=== PATIENT | male | born 1955 | race Caucasian/White ===

== ENCOUNTER 2017-11-20 08:15 | Inpatient (IN) | payer OTHER ==
[2017-11-20] VITALS (7 sets, daily range): BP systolic 114–129; BP diastolic 70–77; PULSE 93–102; TEMP 37–37.7; O2SAT 99–100; Ht 180.3 cm; Wt 113.4 kg
[~2017-11-20] VITALS: Ht 180.3 cm; Wt 113.4 kg
[2017-11-20] MEDS ORDERED: SODIUM CHLORIDE 0.9% 1000ML 1,000 ML IV STA (08:23)
[2017-11-20 08:47] LABS: HEMATOCRIT 48.7 % (42-52); HEMOGLOBIN 17.2 g/dL (14.0-18.0); MEAN CELL VOLUME 93.1 fL (80-100); MEAN CORPUSCULAR HEMOGLOBIN 32.9 pg (25-34); MEAN CORPUSCULAR HGB CONC 35.3 g/dl (32-36); MEAN PLATELET VOLUME 9.1 fL (7.4-10.4); NUCLEATED RED BLOOD CELL ABS 0.06 K/uL (0-0); PLATELET COUNT 160 K/uL (130-400); RED CELL DISTRIBUTION WIDTH CV 13.1 % (11.5-14.5); RED CELL DISTRIBUTION WIDTH SD 44.6 fL (36.4-46.3); WHITE BLOOD COUNT 28.29 K/uL (4.8-10.8)
[2017-11-20 08:57] LABS: INR 1.5 (0.9-1.1); PTT PATIENT 36.8 SECONDS (21.0-31.0)
[2017-11-20 09:03] LABS: ALBUMIN 4.2 gm/dl (3.4-5.0); CALCIUM 9.2 mg/dl (8.5-10.1); CREATININE 1.92 mg/dl (0.60-1.40); POTASSIUM 3.1 mmol/L (3.5-5.1)
[2017-11-20 09:11] LABS: TOTAL PROTEIN 7.8 gm/dl (6.4-8.2)
[2017-11-20] MEDS ORDERED: CARB200T PO (09:14)
[2017-11-20] MEDS ORDERED: CITA40TA12 PO (09:14)
[2017-11-20] MEDS ORDERED: RAPID SEQUENCE INDUCTION BAG ONE (09:15)
[2017-11-20 09:17] LABS: BASO % 0.1 %; BASO ABS # 0.02 K/uL (0-0.2); EOS % 0.1 %; EOS ABS # 0.03 K/uL (0-0.5); IG# 0.23 K/uL (0.00-0.02); LYMPH % 3.2 %; MONO % 10.4 %; MONO ABS # 2.94 K/uL (0.11-0.59); NEUT % 85.4 %; NEUT ABS # 24.17 K/uL (1.4-6.5)
[2017-11-20] MEDS ORDERED: PROPOFOL IV EMULSION 10 MG/ML 100 ML VIAL IV ONE ×2 (09:21→13:48)
--- NOTE | 2017-11-20 09:22 | DIAGNOSTIC IMAGING REPORT ---
HEAD WITHOUT CONTRAST (CT) CLINICAL HISTORY: 62 years-old Male presenting with AMS, stroke symptoms, involuntary movements. TECHNIQUE: Multidetector CT imaging of the head was performed without the use of intravenous contrast. IV contrast: None. A dose lowering technique was used consistent with the principles of ALARA (as low as reasonably achievable). COMPARISON: None. CT DOSE (mGy.cm): The estimated cumulative dose is 1244.74 mGycm. FINDINGS: Surveying Teacher topogram: Unremarkable. Diffuse ventricular dilatation with relative sulcal effacement. The lateral ventricles, third ventricle, and fourth ventricle are all dilated. Cystic encephalomalacia and gliosis in the left frontal lobe and anterior left temporal lobe consistent with chronic infarcts. Paramedian frontoparietal vertex encephalomalacia also likely indicate of prior infarcts. Subtle hypodensity suggested in the left cerebral hemisphere. No midline shift. No hemorrhage. No extra-axial fluid collection. Paranasal sinuses and mastoid air cells clear. Calvarium intact. IMPRESSION: 1. Subtle hypodensity in the left cerebral hemisphere raises concern for acute ischemia. 2. Multifocal chronic infarcts in the left frontal lobe, anterior left temporal lobe, and bilateral paramedian frontal parietal regions at the vertex. 3. 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 The report will be called/faxed according to standard departmental protocol. Electronically signed by: Marino Novak M.D. 11/20/2017 9:20 AM Dictated Date/Time: 11/20/2017 9:15 AM
[2017-11-20] MEDS ORDERED: PROPOFOL IV EMULSION 10 MG/ML 100 ML VIAL IV STA (09:24)
[2017-11-20] MEDS ORDERED: MIDAZOLAM HCL 1 MG/ML 2ML VIAL IV ONE ×2 (09:30→09:45)
[2017-11-20] MEDS ORDERED: LEVETIRACETAM IV 1,000 MG in DEXTROSE 5% 100ML 100 ML IV ONE (09:30)
[2017-11-20] MEDS ORDERED: OPTIRAY 320 IV PRN (09:45)
--- NOTE | 2017-11-20 09:45 | DIAGNOSTIC IMAGING REPORT ---
CHEST ONE VIEW PORTABLE CLINICAL HISTORY: AMS mental status change. Dyspnea. COMPARISON STUDY: No previous studies for comparison. FINDINGS: Endotracheal tube 2 cm both lucy. Cardiomegaly. Mild prominence pulmonary vasculature possibly secondary to diminished and STIR volumes. IMPRESSION: Endotracheal tube 2 cm above the lucy. Pulmonary vascular congestion. No focal infiltrative process. The above report was generated using voice recognition software. It may contain grammatical, syntax or spelling errors. Electronically signed by: Tani Wen M.D. 11/20/2017 9:43 AM Dictated Date/Time: 11/20/2017 9:42 AM
[2017-11-20] MEDS ORDERED: CEFEPIME IV 1,000 MG in DEXTROSE 5% 100ML 100 ML IV STA (10:14)
[2017-11-20 10:24] LABS: ISTAT SODIUM 137 mEq/L (135-144)
--- NOTE | 2017-11-20 10:27 | DIAGNOSTIC IMAGING REPORT ---
NECK ANGIO WITH CONTRAST CLINICAL HISTORY: 62 years-old Male presenting with altered mental status, stroke symptoms, stroke alert. TECHNIQUE: Multidetector CT angiography of the neck was performed after the administration of intravenous contrast. 3-D volumetric and/or maximum intensity projection (MIP) images were subsequently reconstructed for review. IV contrast: 120 mL of Optiray 320. A dose lowering technique was used consistent with the principles of ALARA (as low as reasonably achievable). Stenosis measurements were based on NASCET-like criteria. COMPARISON: None. CT DOSE (mGy.cm): The estimated cumulative dose is 688.20 mGy.cm. FINDINGS: Casting Carrier topogram: Endotracheal tube terminates in the upper thoracic trachea. Three-vessel aortic arch with patent origins. Atherosclerosis of aortic arch. Bilateral common carotid arteries patent. Atherosclerosis at the bilateral carotid bulbs without significant narrowing of the origins of the internal and external carotid arteries. Bilateral internal carotid arteries widely patent. Origins of the bilateral codominant vertebral arteries agent. Vertebral arteries patent along their entire courses. Limited intracranial evaluation within normal limits. Layering fluid in the right maxillary sinus and fluid and mucosal thickening in the nasal cavity. Degenerative changes of the cervical spine. Lung apices clear. Fluid and debris noted in the mildly distended esophagus. IMPRESSION: 1. No evidence of dissection, focal vessel occlusion, or significant stenosis in the cervical arteries. 2. Appropriately positioned endotracheal tube. 3. Fluid and debris noted in the mildly distended esophagus. Electronically signed by: Marino Novak M.D. 11/20/2017 10:25 AM Dictated Date/Time: 11/20/2017 10:22 AM
[2017-11-20] MEDS ORDERED: POTASSIUM CHLORIDE 10 MEQ / 100ML WTR IV STA (10:32)
--- NOTE | 2017-11-20 10:32 | DIAGNOSTIC IMAGING REPORT ---
HEAD ANGIO WITH CONTRAST CLINICAL HISTORY: Mental status change. Stroke. TECHNIQUE: Transaxial acquisition with multi axial reformatted images COMPARISON STUDY: None FINDINGS: Similar, mild exam due to patient motion. Generalized atelectatic and atherosclerotic change of the cavernous component of the carotid vasculature. There is also ectasia of the supraclinoid aspects of the carotid and intracranial vasculature as well as a lateral displacement of the midline vasculature due to ventricular distention which has been described previously. Mild atherosclerotic change of the middle cerebral arterial vasculature with no high-grade stenotic process. IMPRESSION: 1. Moderately compromised exam due to patient somatic motion. 2. Ectatic and atherosclerotic change of the carotid vasculature within the cavernous regions as well as in the suprasellar components. 3. No major stenotic process. 4. Ventricular enlargement creates a lateral displacement of components of the midline intracranial vasculature. The above report was generated using voice recognition software. It may contain grammatical, syntax or spelling errors. Electronically signed by: Tani Wen M.D. 11/20/2017 10:30 AM Dictated Date/Time: 11/20/2017 10:23 AM
[2017-11-20] MEDS ORDERED: LORAZEPAM 2 MG/ML 1 ML VIAL IV PRN (11:30)
[2017-11-20] MEDS ORDERED: MoRPHine SULFATE 2 MG/ML CARP IV PRN (11:30)
[2017-11-20] MEDS ORDERED: ICU PROTOCOL FOR HYPERGLYCEMIA PRN (11:30)
--- NOTE | 2017-11-20 11:36 | EEG Procedure Note ---
EEG Procedure Note Date of Service Nov 20, 2017. Start / End Times Start Time: 10:45 AM End Time: 11:[address] Gaytan History This is a 62-year-old male who presented with strokelike symptoms and possible seizure. Patient is unresponsive and EEG for further evaluation of seizure etiology. Home Medication List Scheduled Carbamazepine (Tegretol), 400 MG PO BID Citalopram Hydrobromide (Celexa), 40 MG PO DAILY Inpatient Medication List Current Inpatient Medications Medications (Trade) Dose Ordered Sig/Tommy Route Start Time Stop Time Status Last Admin Dose Admin Ioversol (Optiray 320) 125 ml UD PRN IV 11/20/17 09:45 11/24/17 09:44 Description This is a 21 electrode EEG with a single channel dedicated to limited EKG. The electrodes were placed in accordance with the International 10-20 system. Hyperventilation and photic stimulation were not done. At the start of this recording the patient was unresponsive. Background was poorly organized with no anterior to posterior gradient. Background was composed of predominantly low to moderate amplitude 5-6 Hz theta frequencies with intermixed delta frequencies and rare alpha frequencies. There was near continuous right hemispheric slowing. Single T4 sharp wave. There was no state changes or sleep transients. Interpretation This is an abnormal routine EEG secondary to: 1) single right temporal sharp wave 2) near continuous mild right hemispheric slowing 3) moderate diffuse background disorganization and slowing There was no electrographic seizures. Clinical Correlation This EEG indicates: 1) right temporal cortical irritability and possible lower seizure threshold in that area 2) structural or functional cerebral dysfunction in the right hemisphere 3) moderate encephalopathy of nonspecific etiology.
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
[2017-11-20 12:20] LABS: INFLUENZA B ANTIGEN Neg for Influ B (NEG)
[2017-11-20] MEDS ORDERED: SODIUM CHLORIDE 0.9% 1000ML 1,000 ML IV SCH (13:00)
[2017-11-20 13:13] LABS: INFLUENZA A PCR Neg for Influ A (NEG); INFLUENZA B PCR Neg for Influ B (NEG)
[2017-11-20] MEDS ORDERED: ASPIRIN 300 MG SUPP PR ONE (13:15)
[2017-11-20] MEDS ORDERED: CLINDAMYCIN IV 900 MG in DEXTROSE 5% 100ML 100 ML IV SCH (14:00)
--- NOTE | 2017-11-20 14:14 | EMERGENCY ROOM VISIT NOTE ---
History Report prepared by Sanam: Alen Mathis Under the Supervision of: Dr. Williams Hampton D.O. First contact with patient: 08:20 Stated Complaint: STROKE SYMPTOMS History of Present Illness The patient is a 62 year old male who presents to the Emergency Room with altered mentation via EMS. EMS states the patient's family found him 1 hour ago with a right sided facial droop and left sided weakness. They report the patient has a history of a seizure disorder. EMS notes he became incontinent of his bladder and bit his tongue. They state the patient does not have dentures. Last known well was last night. HPI limited secondary to the patient's altered mental status. Source of History: EMS History Limited By: AMS Review of Systems ROS limited secondary to the patient's altered mental status. Past Medical & Surgical Medical Problems: (1) Seizure disorder Family History Unobtainable secondary to the patient's altered mental status. Social History Marital Status: Occupation Status: disabled Current/Historical Medications Scheduled Carbamazepine (Tegretol), 400 MG PO BID Citalopram Hydrobromide (Celexa), 40 MG PO DAILY Allergies Coded Allergies: No Known Allergies (Unverified , 11/20/17) Physical Exam Vital Signs Date Time Temp Pulse Resp B/P (MAP) Pulse Ox O2 Delivery O2 Flow Rate FiO2 11/20/17 11:25 97 18 118/78 99 Mechanical Ventilator 11/20/17 11:01 97 21 103/67 97 11/20/17 10:56 100 20 108/68 97 11/20/17 10:51 100 21 104/66 96 11/20/17 10:46 101 21 102/68 97 11/20/17 10:41 102 22 106/75 98 11/20/17 10:36 103 21 98/70 99 11/20/17 10:31 100 23 97/67 99 11/20/17 10:26 100 23 103/66 99 11/20/17 10:21 101 22 101/67 98 11/20/17 10:16 101 25 100/65 100 11/20/17 10:12 102/69 11/20/17 10:11 102 23 100 11/20/17 10:06 105 19 99 11/20/17 10:01 107 20 121/71 11/20/17 09:36 147/93 11/20/17 09:35 124 20 100 1/5/18 09:32 100 11/20/17 09:31 177/96 11/20/17 09:30 125 17 100 11/20/17 09:29 182/101 11/20/17 09:25 126 16 100 11/20/17 09:20 116 18 99 11/20/17 09:17 232/126 11/20/17 09:15 137 32 98 11/20/17 09:00 145 27 11/20/17 08:50 127 39 11/20/17 08:47 108/90 11/20/17 08:45 122 35 11/20/17 08:40 114 31 97 11/20/17 08:35 116 30 97 11/20/17 08:32 109/69 11/20/17 08:30 124 34 98 11/20/17 08:25 115 21 11/20/17 08:22 119 18 125/74 95 Nasal Cannula 4.0 11/20/17 08:22 116 11/20/17 08:19 125/74 Physical Exam GENERAL: Laying flat in bed, moderate distress, on NC. EYE EXAM: normal conjunctiva. Disconjugate gaze. Left eye deviated down and out. Right eye is intermittently able to track. OROPHARYNX: tongue is bruised and swollen bilaterally. mucous membranes are dry NECK: supple, no nuchal rigidity, no adenopathy, non-tender LUNGS: Diminished breath sounds bilaterally. Normal chest wall mechanics HEART: Tachycardic. no murmurs, S1 normal and S2 normal ABDOMEN: abdomen soft, non-tender, normo-active bowel sounds, no masses, no rebound or guarding. BACK: Back is symmetrical on inspection and there is no deformity, no midline tenderness, no CVA tenderness. SKIN: no rashes and no bruising UPPER EXTREMITIES: upper extremities are grossly normal. LOWER EXTREMITIES: No pitting edema. NEURO EXAM: Eyes are open. Intermittently following commands. Good grasp of upper extremities and good flexion and extension of upper extremities bilaterally. Unable to move lower extremities bilaterally. Non-verbal. Medical Decision & Procedures ER Provider Diagnostic Interpretation: Radiology results as stated below per my review and the radiologist's interpretation: HEAD WITHOUT CONTRAST (CT) CLINICAL HISTORY: 62 years-old Male presenting with AMS, stroke symptoms, involuntary movements. TECHNIQUE: Multidetector CT imaging of the head was performed without the use of intravenous contrast. IV contrast: None. A dose lowering technique was used consistent with the principles of ALARA (as low as reasonably achievable). COMPARISON: None. CT DOSE (mGy.cm): The estimated cumulative dose is 1244.74 mGycm. FINDINGS: Teller Supervisor topogram: Unremarkable. Diffuse ventricular dilatation with relative sulcal effacement. The lateral ventricles, third ventricle, and fourth ventricle are all dilated. Cystic encephalomalacia and gliosis in the left frontal lobe and anterior left temporal lobe consistent with chronic infarcts. Paramedian frontoparietal vertex encephalomalacia also likely indicate of prior infarcts. Subtle hypodensity suggested in the left cerebral hemisphere. No midline shift. No hemorrhage. No extra-axial fluid collection. Paranasal sinuses and mastoid air cells clear. Calvarium intact. IMPRESSION: 1. Subtle hypodensity in the left cerebral hemisphere raises concern for acute ischemia. 2. Multifocal chronic infarcts in the left frontal lobe, anterior left temporal lobe, and bilateral paramedian frontal parietal regions at the vertex. 3. 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 The report will be called/faxed according to standard departmental protocol. Electronically signed by: Marino Novak M.D. 11/20/2017 9:20 AM Dictated Date/Time: 11/20/2017 9:15 AM CHEST ONE VIEW PORTABLE CLINICAL HISTORY: AMS mental status change. Dyspnea. COMPARISON STUDY: No previous studies for comparison. FINDINGS: Endotracheal tube 2 cm both lucy. Cardiomegaly. Mild prominence pulmonary vasculature possibly secondary to diminished and STIR volumes. IMPRESSION: Endotracheal tube 2 cm above the lucy. Pulmonary vascular congestion. No focal infiltrative process. The above report was generated using voice recognition software. It may contain grammatical, syntax or spelling errors. Electronically signed by: Isabella Wen M.D. 11/20/2017 9:43 AM Dictated Date/Time: 11/20/2017 9:42 AM HEAD ANGIO WITH CONTRAST CLINICAL HISTORY: Mental status change. Stroke. TECHNIQUE: Transaxial acquisition with multi axial reformatted images COMPARISON STUDY: None FINDINGS: Similar, mild exam due to patient motion. Generalized atelectatic and atherosclerotic change of the cavernous component of the carotid vasculature. There is also ectasia of the supraclinoid aspects of the carotid and intracranial vasculature as well as a lateral displacement of the midline vasculature due to ventricular distention which has been described previously. Mild atherosclerotic change of the middle cerebral arterial vasculature with no high-grade stenotic process. IMPRESSION: 1. Moderately compromised exam due to patient somatic motion. 2. Ectatic and atherosclerotic change of the carotid vasculature within the cavernous regions as well as in the suprasellar components. 3. No major stenotic process. 4. Ventricular enlargement creates a lateral displacement of components of the midline intracranial vasculature. The above report was generated using voice recognition software. It may contain grammatical, syntax or spelling errors. Electronically signed by: Isabella Wen M.D. 11/20/2017 10:30 AM Dictated Date/Time: 11/20/2017 10:23 AM NECK ANGIO WITH CONTRAST CLINICAL HISTORY: 62 years-old Male presenting with altered mental status, stroke symptoms, stroke alert. TECHNIQUE: Multidetector CT angiography of the neck was performed after the administration of intravenous contrast. 3-D volumetric and/or maximum intensity projection (MIP) images were subsequently reconstructed for review. IV contrast: 120 mL of Optiray 320. A dose lowering technique was used consistent with the principles of ALARA (as low as reasonably achievable). Stenosis measurements were based on NASCET-like criteria. COMPARISON: None. CT DOSE (mGy.cm): The estimated cumulative dose is 688.20 mGy.cm. FINDINGS: Teller Supervisor topogram: Endotracheal tube terminates in the upper thoracic trachea. Three-vessel aortic arch with patent origins. Atherosclerosis of aortic arch. Bilateral common carotid arteries patent. Atherosclerosis at the bilateral carotid bulbs without significant narrowing of the origins of the internal and external carotid arteries. Bilateral internal carotid arteries widely patent. Origins of the bilateral codominant vertebral arteries agent. Vertebral arteries patent along their entire courses. Limited intracranial evaluation within normal limits. Layering fluid in the right maxillary sinus and fluid and mucosal thickening in the nasal cavity. Degenerative changes of the cervical spine. Lung apices clear. Fluid and debris noted in the mildly distended esophagus. IMPRESSION: 1. No evidence of dissection, focal vessel occlusion, or significant stenosis in the cervical arteries. 2. Appropriately positioned endotracheal tube. 3. Fluid and debris noted in the mildly distended esophagus. Electronically signed by: Marino Novak M.D. 11/20/2017 10:25 AM Dictated Date/Time: 11/20/2017 10:22 AM Laboratory Results 11/20/17 08:30 Red Blood Count 5.23, Mean Corpuscular Volume 93.1, Mean Corpuscular Hemoglobin 32.9, Mean Corpuscular Hemoglobin Concent 35.3, Mean Platelet Volume 9.1, Neutrophils (%) (Auto) 85.4, Lymphocytes (%) (Auto) 3.2, Monocytes (%) (Auto) 10.4, Eosinophils (%) (Auto) 0.1, Basophils (%) (Auto) 0.1, Neutrophils # (Auto ) 24.17, Lymphocytes # (Auto) 0.90, Monocytes # (Auto) 2.94, Eosinophils # (Auto ) 0.03, Basophils # (Auto) 0.02 11/20/17 08:30 Test 11/20/17 08:30 11/20/17 08:47 11/20/17 08:52 11/20/17 09:35 White Blood Count 28.29 K/uL (4.8-10.8) Red Blood Count 5.23 M/uL (4.7-6.1) Hemoglobin 17.2 g/dL (14.0-18.0) Hematocrit 48.7 % (42-52) Mean Corpuscular Volume 93.1 fL (80-100) Mean Corpuscular Hemoglobin 32.9 pg (25-34) Mean Corpuscular Hemoglobin Concent 35.3 g/dl (32-36) Platelet Count 160 K/uL (130-400) Mean Platelet Volume 9.1 fL (7.4-10.4) Neutrophils (%) (Auto) 85.4 % Lymphocytes (%) (Auto) 3.2 % Monocytes (%) (Auto) 10.4 % Eosinophils (%) (Auto) 0.1 % Basophils (%) (Auto) 0.1 % Neutrophils # (Auto) 24.17 K/uL (1.4-6.5) Lymphocytes # (Auto) 0.90 K/uL (1.2-3.4) Monocytes # (Auto) 2.94 K/uL (0.11-0.59) Eosinophils # (Auto) 0.03 K/uL (0-0.5) Basophils # (Auto) 0.02 K/uL (0-0.2) RDW Standard Deviation 44.6 fL (36.4-46.3) RDW Coefficient of Variation 13.1 % (11.5-14.5) Immature Granulocyte % (Auto) 0.8 % Immature Granulocyte # (Auto) 0.23 K/uL (0.00-0.02) Nucleated RBC Absolute Count (auto) 0.06 K/uL (0-0) Nucleated Red Blood Cells % 0.2 % Toxic Granulation 1+ Prothrombin Time 15.8 SECONDS (9.0-12.0) Prothromb Time International Ratio 1.5 (0.9-1.1) Activated Partial Thromboplast Time 36.8 SECONDS (21.0-31.0) Partial Thromboplastin Ratio 1.4 Anion Gap 11.0 mmol/L (3-11) Est Creatinine Clear Calc Drug Dose 49.6 ml/min Estimated GFR () 42.3 Estimated GFR (Non- 36.5 BUN/Creatinine Ratio 12.6 (10-20) Calcium Level 9.2 mg/dl (8.5-10.1) Total Bilirubin 0.9 mg/dl (0.2-1) Direct Bilirubin 0.3 mg/dl (0-0.2) Aspartate Amino Transf (AST/SGOT) 210 U/L (15-37) Alanine Aminotransferase (ALT/SGPT) 164 U/L (12-78) Alkaline Phosphatase 126 U/L (45-117) Total Creatine Kinase 2818 U/L (39-308) Troponin I 6.950 ng/ml (0-0.045) Total Protein 7.8 gm/dl (6.4-8.2) Albumin 4.2 gm/dl (3.4-5.0) Venous Blood pH 7.26 (7.36-7.41) Venous Blood Partial Pressure CO2 48 mmHg (38.0-50.0) Venous Blood Partial Pressure O2 24 mmHg Venous Blood HCO3 21 mmol/L Venous Blood Oxygen Saturation < 60.0 % Venous Blood Base Excess -5.9 mEq/L Bedside Lactic Acid Venous 7.23 mmol/L (0.90-1.70) Urine Color DK YELLOW Urine Appearance TURBID (CLEAR) Urine pH 5.5 (4.5-7.5) Urine Specific [place] 1.020 (1.000-1.030) Urine Protein 2+ (NEG) Urine Glucose (UA) NEG (NEG) Urine Ketones TRACE (NEG) Urine Occult Blood 3+ (NEG) Urine Nitrite NEG (NEG) Urine Bilirubin NEG (NEG) Urine Urobilinogen NEG (NEG) Urine Leukocyte Esterase MODERATE (NEG) Urine WBC (Auto) 1-5 /hpf (0-5) Urine RBC (Auto) >30 /hpf (0-4) Urine Hyaline Casts (Auto) 1-5 /lpf (0-5) Urine Epithelial Cells (Auto) >30 /lpf (0-5) Urine Bacteria (Auto) 2+ (NEG) Urine Renal Epithelial Cells /lpf (0-5) Urine Pathogenic Casts 0-3 GRANULAR CASTS /lpf (0) Test 11/20/17 09:50 11/20/17 10:10 Bedside Hemoglobin 13.3 g/dl (14.0-18.0) Bedside Hematocrit 39 % (42-52) Bedside Blood Gas pH (LAB) 7.24 (7.35-7.45) Bedside Blood Gas pCO2 (LAB) 43 mmHg (35-46) Bedside Blood Gas pO2 (LAB) 229 mmHg (80-95) Bedside Blood Gas HCO3 (LAB) 18 meq/L (19-24) Bedside Blood Gas Total CO2 20 mEq/l (24-31) Bedside Blood Gas Base Excess (LAB) -9.0 meq/L (-9-1.8) Bedside Blood Gas O2 Saturation 100.0 % (90-95) Bedside Sodium 137 mEq/L (135-144) Bedside Potassium 3.0 mEq/L (3.3-5.0) Laboratory results per my review. Medications Administered Medications (Trade) Dose Ordered Sig/Tommy Route Start Time Stop Time Status Last Admin Dose Admin Sodium Chloride 1,000 ml @ 999 mls/hr Q1H1M STAT IV 11/20/17 08:23 11/20/17 09:23 DC 11/20/17 08:42 999 MLS/HR Miscellaneous (Rapid Sequence Induction Bag) 1 ea STK-MED ONCE N/A 11/20/17 09:15 11/20/17 09:16 DC 11/20/17 09:15 1 EA Propofol (Diprivan Iv Emulsion 100ml Vial) 1 dose STK-MED ONCE IV 11/20/17 09:21 11/20/17 09:22 DC 11/20/17 09:21 1 DOSE Midazolam HCl (Versed Inj) 6 mg ONE ONCE IV 11/20/17 09:30 11/20/17 09:31 DC 11/20/17 09:30 6 MG Levetiracetam 1000 mg/Dextrose 110 ml @ 440 mls/hr ONE ONCE IV 11/20/17 09:30 11/20/17 09:44 DC 11/20/17 10:12 440 MLS/HR Propofol (Diprivan Iv Emulsion 100ml Vial) 1 dose UD STAT IV 11/20/17 09:24 11/20/17 09:26 DC 11/20/17 09:24 1 DOSE Midazolam HCl (Versed Inj) 4 mg NOW ONCE IV 11/20/17 09:45 11/20/17 09:46 DC 11/20/17 09:44 4 MG Cefepime HCl 1000 mg/Dextrose 111 ml @ 200 mls/hr NOW STAT IV 11/20/17 10:14 11/20/17 14:03 DC 11/20/17 10:44 200 MLS/HR Potassium Chloride (Kcl 10 Meq / Wtr) 10 meq NOW STAT IV 11/20/17 10:32 11/20/17 10:33 DC 11/20/17 10:32 10 MEQ Procedure EM PROCEDURE NOTE - Endotracheal Intubation PROCEDURE NOTE: Informed consent was not obtained by the patient. Verify Correct Patient: yes Procedure: Endotracheal intubation Indication: Resp Failure The procedure was done emergently. Description of the Procedure: The patient was seen and properly identified. The patient was pre-oxygenated and intubated after rapid sequence induction with meds: Succinylcholine and Ketamine. Intubation was performed using a glidescope and a 7.5 cuffed endotracheal tube. The tube was visualized going through the cords and secured with the 27cm isabella at the lips. The patient had good bilateral breath sounds in the axillae with good chest rise. Proper ET tube placement was confirmed by end tidal CO2 detector. The patient tolerated the procedure well. ECG Indication: other (stroke symptoms) Rate (beats per minute): 118 Rhythm: sinus tachycardia Findings: nonspecific-ST abn (Faint, Inferior), PAC, other (normal axis) ED Course ED COURSE: Vital signs were reviewed and showed a tachycardic heart rate. The patients medical record was reviewed The above diagnostic studies were performed and reviewed. ED treatments and interventions as stated above. 0819: The patient was evaluated in room B01. A complete history and physical examination was performed. 0823: Ordered Sodium Chloride 1000 ml @ 999 mls/hr IV 0853: I was informed by the nurse that the patient's POC lactic acid was 7. 0904: I reevaluated the patient. He is going to be intubated. 0915: Ordered Rapid Sequence Induction Bag 0921: Ordered Propofol 1 dose IV 0924: Ordered Propofol 1 dose IV 0928: I discussed the patient's case with Dr. Gaytan, ICU. He is going to evaluate the patient for further management and care. 0930: Ordered Levetiracetam 1000 mg/Dextrose 110 ml @ 440 mls/hr IV, Midazolam HCl 6 mg IV 0940: I reevaluated the patient. His Fentanyl titration is at 20mcg now. 0945: Ordered Midazolam HCl 4mg IV 1014: Ordered Cefepime HCl 1000 mg/Dextrose 111 ml @ 200 mls/hr IV 1032: Ordered Potassium Chloride 10 meq IV 1041: I discussed the patient's case with Dr. Brock, [facility]. There is no reason for acute transfer because the CTA was negative. 1102: I discussed the patient's case with Dr. Yann Medrano, [facility] Hospitalist. He will evaluate the patient for further management and care. 1103: I discussed the patient's case with Dr. Gaytan, ICU. I updated him of the patient's treatment plan. []: Upon reevaluation, the patient is [].I discussed my findings with the [ patient] and [] understands and agrees with the treatment plan. Based on the patients age, coexisting illnesses, exam and lab findings the decision to treat as an [inpatient][outpatient] was made. The patient remained stable while under my care. [The patient appeared well at the time of discharge.] [The patient will be evaluated for further management.] Medical Decision Differential diagnoses includes but is not limited to toxic, metabolic, infectious, traumatic, cardiac, neurologic, hematologic, psychiatric and inflammatory etiologies. Patient is a 62-year-old male who was last known well last night was found by family to be confused this morning. He was brought in by EMS. There is a report of a possible stroke with left-sided deficit. On my evaluation he is initially able to follow commands with the upper extremities but unable to move the lower extremities. CBC shows a leukocytosis of 20,000. BMP with a potassium of 3.1. Creatinine 1.9. Transaminitis is present. Troponin was elevated at 7. Lactic acid was 7. PH was 7.26. Patient was taken to CT and blood work was obtained. I did not initially make him a stroke alert as she was nonfocal. With the biting of his tongue and loss of his bladder I favor this to be most likely a seizure. Shortly thereafter returned from CT patient became rigid in the upper extremities but there is no tonic-clonic activity. He started biting down on his tongue and became very tense. At this time he was extremely altered. He was given by Faby. He was intubated with succinylcholine and ketamine. He was given/placed on propofol drip and given Versed as well for possible seizures which I favor is the likely cause of symptoms. CT resulted and showed a possible stroke. At this time I see was present at bedside. They did evaluate him. They discussed with family. Patient is a full code. We made him a stroke alert performed a CTA of his head and neck. This was negative. I discussed this with her she stroke neurology. They did not want him transferred. After this I discussed the case again with our ICU and internal medicine attendings. He was admitted to internal medicine at this point. Continued to monitor the vent settings and adjust propofol for sedation while in the ER. Medication Reconcilliation Current Medication List: was personally reviewed by me Blood Pressure Screening Patient's blood pressure: Normal blood pressure Blood pressure disposition: Did not require urgent referral Consults Time Called: [phone] Consulting Physician: Dr. Gaytan, ICU Returned Call: [phone] I discussed the patient's case with Dr. Gaytan, ICU. He is going to evaluate the patient for further management and care. 1103: I discussed the patient's case with Dr. Gaytan, ICU. I updated him of the patient's treatment plan. Additional Consults: Time Called: 1037 Consulted Physician: [facility] Returned Call: [phone] Additional Comments: I discussed the patient's case with [facility]. There is no reason for acute transfer because the CTA was negative. Time Called: 1044 Consulted Physician: Dr. Yann Medrano, [facility] Hospitalist Returned Call: [phone] Additional Comments: I discussed the patient's case with Dr. Yann Medrano [facility] Hospitalist. He will evaluate the patient for further management and care. Impression Primary Impression: CVA (cerebral vascular accident) Additional Impressions: Altered mental status Respiratory failure Lactic acidosis Myocardial infarction Hypokalemia Seizure disorder Critical Care I have personally spent 125 minutes of critical care time in the direct management of this patient. This includes bedside care, interpretation of diagnostic studies, and testing, discussion with consultants, patient, and family members, and other required patient management activities. This 125 minutes is in excess of all separately billable procedures. Scribe Attestation The scribe's documentation has been prepared under my direction and personally reviewed by me in its entirety. I confirm that the note above accurately reflects all work, treatment, procedures, and medical decision making performed by me. Departure Information Dispostion Being Evaluated By Hospitalist Stroke History Time Last Known Well Unknown Stroke t-PA Criteria Reviewed Does NOT meet criteria for t-PA Reason t-PA Not Given Treatment not indicated Problem Qualifiers Primary Impression: CVA (cerebral vascular accident) CVA mechanism: unspecified Qualified Codes: I63.9 - Cerebral infarction, unspecified Additional Impressions: Altered mental status Altered mental status type: unspecified Qualified Codes: R41.82 - Altered mental status, unspecified Respiratory failure Chronicity: unspecified Respiratory failure complication: unspecified whether with hypoxia or hypercapnia Qualified Codes: J96.90 - Respiratory failure, unspecified, unspecified whether with hypoxia or hypercapnia
[2017-11-20] MEDS ORDERED: FENTANYL CITRATE INJ 50 MCG/1 ML 2 ML VIAL IV PRN (14:15)
[2017-11-20] MEDS ORDERED: PIPERACILL/TAZOBAC IV 4.5 GM in DEXTROSE 5% 100ML 100 ML IV ONE (14:30)
[2017-11-20] MEDS ORDERED: PIPERACILL/TAZOBAC CONSULT ACTIVE PRN (14:45)
--- NOTE | 2017-11-20 15:35 | DIAGNOSTIC IMAGING REPORT ---
ABDOMEN COMPLETE (US) CLINICAL HISTORY: 62 years-old Male presenting with LAURYN/hepatitis, R/O obstructive uropathy or cholecystitis . TECHNIQUE: Real-time grayscale and limited color Doppler ultrasound imaging of the abdomen was performed. COMPARISON: None. FINDINGS: Overall limited examination secondary to poor sonographic windows. Pancreas: Largely obscured due to overlying bowel gas. Liver: Normal echogenicity and echotexture. The liver measures 19.4 cm in maximal sagittal dimension. No sonographic evidence of hepatic mass. Main portal vein patent with normal directional flow. Biliary: No intrahepatic biliary ductal dilatation. Common bile duct measures up to 4 mm in diameter. Gallbladder: Decompressed. No gallstones. Spleen: Normal in echogenicity and size, measuring 10.4 cm in length. Kidneys: 2.2 cm hypoechoic to anechoic lesion noted in the interpolar region of the left kidney, possibly cyst. Right kidney normal appearing. Right kidney measures 12.1 cm, and left kidney measures 13.1 cm. No hydronephrosis. Vasculature: Visualized portions of the IVC and abdominal aorta normal. Ascites: None. IMPRESSION: 1. No cholelithiasis, evidence of cholecystitis, or biliary ductal dilatation. 2. Sensitivity for the diagnosis of hepatitis is highly limited on ultrasound. 3. No hydronephrosis. Electronically signed by: Marino Novak M.D. 11/20/2017 3:34 PM Dictated Date/Time: 11/20/2017 3:31 PM
[2017-11-20] MEDS ORDERED: MIDAZOLAM HCL 5 MG/ML 1 ML VIAL IV ONE (15:44)
[2017-11-20] MEDS ORDERED: SUCCINYLCHOLINE CHLORIDE 20 MG/ML 10 ML VIAL IV ONE (15:44)
[2017-11-20] MEDS ORDERED: KETAMINE HCL INJ 50 MG/ML 10 ML VIAL IV ONE (15:44)
[2017-11-20] MEDS: LACTOBACILLUS ACIDOPHILUS 1 GM PACK PO SCH (16:30)
[2017-11-20 17:30] LABS: CREATININE 1.71 mg/dl (0.60-1.40)
[2017-11-20] MEDS ORDERED: GADAVIST IV PRN (18:00)
--- NOTE | 2017-11-20 18:16 | DIAGNOSTIC IMAGING REPORT ---
MRI OF THE BRAIN WITHOUT AND WITH IV CONTRAST CLINICAL HISTORY: Recent stroke. Possible seizure. COMPARISON STUDY: Noncontrast head CT dated 11/20/2017 TECHNIQUE: MRI of the brain was performed from the vertex to the skull base utilizing various T1 and T2 weighted sequences. Following the IV administration of 11 mL of Gadavist contrast, additional enhanced images were obtained. FINDINGS: Sagittal T1, axial diffusion, proton density and T2 weighted axial, coronal FLAIR, and pre and post axial T1-weighted images were acquired. These were supplemented with post gadolinium coronal T1 weighted images. No intra or extra-axial mass lesions are visualized. Axial diffusion-weighted images reveal no evidence of acute or subacute infarction. There is moderate ventricular dilatation, likely secondary to volume loss. Proton density T2-weighted and FLAIR images reveal evidence for prior left frontal and temporal lobe encephalomalacia. There is also evidence for encephalomalacia at the parietal vertices. There is a bony defect involving the floor the left anterior cranial fossa. There are no abnormal flow voids. There is no evidence of pathologic enhancement. There are bilateral maxillary sinus air-fluid levels. There is a sphenoid sinus air-fluid level. There is partial opacification of the ethmoid air cells. IMPRESSION: 1. No evidence of intracranial mass 2. No evidence of acute or subacute infarction 3. 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 There is also encephalomalacia involving the anterior temporal lobe, and both parietal vertices. 4. 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 Bilateral maxillary sinus air-fluid levels, sphenoid sinus air-fluid level, and partial opacification of the ethmoid air cells Electronically signed by: Franco Reynolds M.D. 11/20/2017 6:14 PM Dictated Date/Time: 11/20/2017 6:03 PM
[2017-11-20 18:38] LABS: CALCIUM 7.4 mg/dl (8.5-10.1); POTASSIUM 4.2 mmol/L (3.5-5.1)
[2017-11-20] MEDS: PROPOFOL IV EMULSION 10 MG/ML 100 ML VIAL IV PRN (19:16)
[2017-11-20] MEDS ORDERED: DEXTROSE 50% 50 ML SYR ONE (19:54)
[2017-11-20] MEDS ORDERED: D5W AND NSS 1,000 ML IV SCH (20:45)
[2017-11-20] MEDS: PIPERACILL/TAZOBAC IV 4.5 GM in DEXTROSE 5% 100ML IV SCH (20:55)
[2017-11-20] MEDS: HEPARIN SOD 5000 UNIT/0.5 ML CARP SQ SCH (20:56)
[2017-11-20] MEDS ORDERED: CARBAMAZEPINE 200 MG TAB PO SCH (21:00)
[2017-11-20 21:29] LABS: HEP C IGG 13 YRS+OLDER_RFLX NEG (NEG)
[2017-11-20] MEDS: CARBAMAZEPINE 100 MG CHEW TAB PO SCH (22:35)
--- NOTE | 2017-11-20 22:52 | Critical Care Consultation ---
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 for TPA if stroke, so obtained CTA to r/o acute thrombus amenable to richard procedure. Obtain EEG in ED did not reveal ongoing seizure activity. Problem Qualifiers (1) Respiratory failure: Chronicity: unspecified Respiratory failure complication: unspecified whether with hypoxia or hypercapnia Qualified Codes: J96.90 - Respiratory failure, unspecified, unspecified whether with hypoxia or hypercapnia (2) Altered mental status: Altered mental status type: unspecified Qualified Codes: R41.82 - Altered mental status, unspecified
--- NOTE | 2017-11-20 23:02 | DIAGNOSTIC IMAGING REPORT ---
KUB CLINICAL HISTORY: OG tube placement COMPARISON STUDY: None. FINDINGS: Tip of endotracheal tube is 3.1 cm above the lucy. The nasogastric tube is coiled within the stomach with tip projecting of the gastric cardia. IMPRESSION: Nasogastric tube coiled within the stomach with tip projecting over the gastric cardia. Electronically signed by: João Grigsby M.D. 11/20/2017 11:01 PM Dictated Date/Time: 11/20/2017 10:59 PM
[2017-11-20 23:05] LABS: HEMOGLOBIN 14.3 g/dL (14.0-18.0)
[2017-11-21] VITALS (45 sets, daily range): BP systolic 117–191; BP diastolic 68–122; PULSE 86–106; TEMP 37.1–37.2; O2SAT 94–100
[2017-11-21] MEDS: PROPOFOL IV EMULSION 10 MG/ML 100 ML VIAL IV PRN (00:41)
[2017-11-21 03:49] LABS: NUCLEATED RED BLOOD CELL ABS 0.06 K/uL (0-0)
[2017-11-21 04:07] LABS: ALBUMIN 2.9 gm/dl (3.4-5.0); CREATININE 1.45 mg/dl (0.60-1.40); INR 4.1 (0.9-1.1); POTASSIUM 4.1 mmol/L (3.5-5.1)
[2017-11-21] MEDS: PIPERACILL/TAZOBAC IV 4.5 GM in DEXTROSE 5% 100ML IV SCH ×2 (04:08→11:45)
[2017-11-21] MEDS: LACTATED RINGER'S 1000ML 1,000 ML IV SCH ×3 (04:09→06:25)
[2017-11-21 04:24] LABS: HEMATOCRIT 41.1 % (42-52); HEMOGLOBIN 14.2 g/dL (14.0-18.0); MEAN CELL VOLUME 94.5 fL (80-100); MEAN CORPUSCULAR HEMOGLOBIN 32.6 pg (25-34); MEAN CORPUSCULAR HGB CONC 34.5 g/dl (32-36); MEAN PLATELET VOLUME 9.6 fL (7.4-10.4); PLATELET COUNT 60 K/uL (130-400); RED CELL DISTRIBUTION WIDTH CV 13.8 % (11.5-14.5); RED CELL DISTRIBUTION WIDTH SD 47.6 fL (36.4-46.3); WHITE BLOOD COUNT 29.93 K/uL (4.8-10.8)
[2017-11-21 04:35] LABS: BASO % 0.1 %; BASO ABS # 0.03 K/uL (0-0.2); LYMPH % 4.9 %; LYMPH ABS # 1.46 K/uL (1.2-3.4); MONO % 3.5 %; MONO ABS # 1.05 K/uL (0.11-0.59); NEUT % 90.8 %; NEUT ABS # 27.19 K/uL (1.4-6.5)
[2017-11-21 04:36] LABS: PHOSPHORUS 3.2 mg/dl (2.5-4.9); TOTAL PROTEIN 5.3 gm/dl (6.4-8.2)
[2017-11-21] MEDS: LACTOBACILLUS ACIDOPHILUS 1 GM PACK PO SCH (05:23)
[2017-11-21] MEDS ORDERED: ACETYLCYSTEINE IV 21 HOUR REGIMEN IV STA (05:58)
[2017-11-21] MEDS ORDERED: ACETYLCYSTEINE IV STA (06:04)
[2017-11-21] MEDS ORDERED: DEXTROSE 5% IV STA (06:04)
[2017-11-21] MEDS ORDERED: VANCOMYCIN IV 2,500 MG in SODIUM CHLORIDE 0.9% 500ML 500 ML IV STA (06:06)
[2017-11-21] MEDS ORDERED: VANCOMYCIN CONSULT ACTIVE PRN (06:15)
[2017-11-21] MEDS ORDERED: OPTIRAY 320 IV PRN (06:45)
--- NOTE | 2017-11-21 06:49 | DIAGNOSTIC IMAGING REPORT ---
PORTAL AND HEPATIC VENOUS DUPLEX ULTRASOUND CLINICAL HISTORY: Acute Liver Failure COMPARISON STUDY: No previous studies for comparison. FINDINGS: The study was difficult from a technical standpoint, given the patient's body habitus, and ventilator status. Color flow and spectral waveforms were acquired. The portal veins were patent with normal directional flow. The right and middle hepatic veins were patent with normal directional flow. The left hepatic vein was nonvisualized. The hepatic artery was patent. IMPRESSION: Nonvisualization of the left hepatic vein. Otherwise normal study. No evidence of portal vein thrombus. Normal directional flow within the portal veins. Electronically signed by: Franco Reynolds M.D. 11/21/2017 6:48 AM Dictated Date/Time: 11/21/2017 6:44 AM
[2017-11-21] MEDS ORDERED: DEXTROSE 5% IV SCH ×2 (07:00→11:00)
[2017-11-21] MEDS ORDERED: ACETYLCYSTEINE IV SCH ×2 (07:00→11:00)
--- NOTE | 2017-11-21 07:12 | DIAGNOSTIC IMAGING REPORT ---
CHEST ONE VIEW PORTABLE CLINICAL HISTORY: Respiratory failure COMPARISON STUDY: 11/20/2017 FINDINGS: There is an endotracheal tube positioned approximately 3 cm above the lucy. There is a nasogastric tube which extends into the stomach. The heart is borderline enlarged. There is a small left pleural effusion with associated left basilar atelectasis/consolidation.[ IMPRESSION: Small left pleural effusion with associated left lower lobe atelectasis/consolidation Electronically signed by: Franco Reynolds M.D. 11/21/2017 7:11 AM Dictated Date/Time: 11/21/2017 7:10 AM
--- NOTE | 2017-11-21 07:20 | DIAGNOSTIC IMAGING REPORT ---
CT ABD/PELVIS COMBO CLINICAL HISTORY: Acute hepatic failure. Respiratory failure. COMPARISON STUDY: None. TECHNIQUE: Unenhanced images were obtained through the upper abdomen. The patient was then scanned in a dynamic helical fashion during intravenous administration 119 cc of Optiray 320. 30 seconds delayed images were obtained through the upper abdomen. 82nd images were obtained through the abdomen and pelvis. A dose lowering technique was utilized adhering to the principles of ALARA. CT DOSE: 4054.78 mGy.cm FINDINGS: Lower chest: There is bilateral lower lobe atelectasis/consolidation. There is a trace left pleural effusion. There are coronary artery calcifications present. A nasogastric tube is visualized with its tip in the stomach. Liver: No space-occupying hepatic masses are visualized. The hepatic and portal veins appear patent. Gallbladder: There is mild pericholecystic edema. Spleen: Normal in size and attenuation. Pancreas: Unremarkable. Adrenal glands: Unremarkable. Kidneys: No renal calculi are visualized. There are no solid renal masses. There is no hydronephrosis. Bowel: There are no transition zones indicate bowel obstruction. There is scattered stool within the colon. There is a large amount stool within the rectal vault which measures 7 cm in diameter. There is minimal nonspecific infiltration of the fat lateral to the ascending colon. Peritoneum: There is trace free pelvic fluid. No free intraperitoneal air is visualized. Vasculature: The abdominal aorta is normal in course and caliber. Adenopathy: None. Pelvic viscera: There is an indwelling catheter present. Skeletal structures: There is a superior endplate L1 compression deformity, likely old. IMPRESSION: 1. Bilateral lower lobe pulmonary atelectasis/consolidation 2. No hepatic masses identified. No evidence of ductal dilatation. No evidence of portal vein thrombosis. 3. Mild nonspecific pericholecystic edema 4. Minor infiltration the fat lateral to the ascending colon. 5. No evidence of acute diverticulitis. No evidence of acute appendicitis 6. No evidence of bowel obstruction. No evidence of free air Electronically signed by: Franco Reynolds M.D. 11/21/2017 7:19 AM Dictated Date/Time: 11/21/2017 7:11 AM
[2017-11-21] MEDS ORDERED: D5W AND NSS 1,000 ML IV SCH (07:30)
--- NOTE | 2017-11-21 07:31 | Critical Care Progress Note ---
Critical Care Progress Note Date of Service Nov 21, 2017. ICU Day ICU Day Number: [address] Gaytan Subjective intubated, propofol was stopped around 5 am. rather slow improvement in mental status, opening eyes to name at this point. Additional history from , patient does have depression since having accident in the 80s, no history of suicide attempt or self-harm. Does take acetaminophen for aches and pains however no history to suggest acute Tylenol overdose Objective General -no acute distress Eyes - PERRL, Bilateral eyes inferiorly divergent and disconjugate, mild icterus , ENT - Dried blood, tongue swollen and protruding, ecchymotic to left aspect, ET tube in place. Neck - Supple, trachea midline, Lungs - clear to auscultation bilaterally, no wheezes, rales, or rhonchi Heart - Reg rate and rhythm, No murmur, rubs, clicks, or gallops appreciated Abdomen - BS present, no bruits noted, tympanic to percussion, soft, nondistended, no organomegaly Extremities - Edema noted, pedal pulses intact Neuro - RASS -1 Strength: could not be assessed Assessment & Plan (1) Hypokalemia (2) Lactic acidosis (3) Respiratory failure (4) Altered mental status (5) Seizure disorder Reason Critically Ill: Patient is a 62-year-old male who is transferred to the ICU for Altered Mental Status s/p behavior suspicious for seizure. Pt was found non-responsive by family then aroused confused, was later incontinent and bit his tongue. Pt again became rigid in the ED and required intubation. CTA was negative for ischemia; therefore, dx lends best to seizure activity. Neurology consult with Dr. Ash has been initiated. Pt was continued on his home Tegretol and in addition he received a 1 g load dose of Keppra. To date there has been no additional seizure activity noted. Patient is currently sedated and intubated and thus limiting neurologic exam at this time. Plan to extubate as soon as patient meets extubation criteria. Extubation is currently contraindicated secondary to increasing tongue swelling. PLAN: Neuro: Seizure disorder * Carbamazepine level 7.8 * Original head CT did not rule out acute stroke; however, CT angiography of head and neck as well as brain MRI demonstrate no acute/subacute ischemic process * Neurology consult pending. * Holding home "tablet" Tegretol as it can not be crushed for delivery through OG tube * Switched to chewable while pt is intubated, as it can be crushed for administration * Keppra dosage deferred to Neuro * Known left foot drop, lnard Heel Suspension Boot ordered Resp: * Patient intubated for respiratory insufficiency and postictal. * Patient appears to have been biting tongue at some point and time is currently swollen * Given acute liver failure and tone issues patient to remain intubated CV: Elevated troponins * Downtrending * Echocardiogram pending * No current sign of arrhythmia * Monitor on telemetry, Hemodynamically stable currently Fluids/Renal: * LAURYN: Resolved, creatinine 1.45 * No known baseline * Rcv'd 3.2L of combined fluids in ED, Approx 3L positive now. * Abd U/S Kidney * 2.2 cm hypoechoic to anechoic lesion noted in the interpolar region of the left kidney, possibly cyst. Right kidney normal appearing. Right kidney measures 12.1 cm, and left kidney measures 13.1 cm. No hydronephrosis. * No obstructive uropathy noted * CPK: Increased * Considered to have been secondary to the seizure activity * Increased fluid administration overnight to LR at 200 MLS per hour * Hypokalemia on admission, tx'd * Monitor electrolytes and replete per protocol ID: * Afebrile with leukocytosis * At risk for aspiration PNA, will follow clinically * U/A: susp for infection * will treat pending culture results * Blood Cultures pending * Influenza negative * Pt received 1 time doses of Clindamycin, Cefepime and Zosyn in ED * Will continue Zosyn currently (first 11/20/17) * Converted to Zosyn from cefepime for increased anaerobic coverage given transaminitis * Throat Culture negative * MRSA nasal negative * Lactic Acid improvin.23 -> 3.7 * Sending repeat blood cultures, concern for sepsis GI/Nutrition: * NPO except meds * Gastric Contents heme positive. * Acute liver failure * Meld increased from 17 to 30 * I discussed the case with Dr. Cowan who will see the patient * Abd U/S * Liver: Normal echogenicity and echotexture. The liver measures 19.4 cm in maximal sagittal dimension. No sonographic evidence of hepatic mass. Main portal vein patent with normal directional flow. * Obtained duplex of liver formal radiology report pending at this time * Discussed with there may be some chronic Tylenol use however no concern for acute acetaminophen overdose * Hepatitis B, and C negative * Have empirically started IV acetylcysteine therapy. Heme: * Hemoglobin 17.2 at 0830, POC 13.3 at 1010. * Type and cross for 2 units packed reds and 4 units FFP Thrombocytopenia * Concern for fulminant liver failure versus DIC Elevated INR Endocrine: * Hypoglycemia noted x 2. Fluids changed to include D5 after 1/2Amp of D50 x 2 administered Access: Maintain 2 PIV CODE STATUS: Full I obtained telephone consent from the patient's Rose for blood product transfusion as well as placement of a central venous catheter. In discussing the case with gastroenterology if this represents fulminant liver failure the patient may necessitate transfer to tertiary care center for further evaluation and management. Update 9:05 AM: Discussed with gastroenterology patient would benefit for evaluation at tertiary care center start beginnings of transplant evaluation in case the patient enters fulminant liver failure. Case management informed me that the patient's primary medical [facility] through [facility] and must receive prior off prior to transfer to another facility. I contacted the [facility], they were unable to find him in their system by his social security number. I provided the deputy clerk of court with name date of Social Security number and they will be returning my call after they determine his eligibility. I have attempted to contact the patient's , she did not answer her home phone and anticipate that she is in route to the hospital. Update 10:05 AM: Patient has been accepted in transfer to the medical ICU in the [facility] accepting physician . Patient will be transported via ground ALS. I have personally spent 120 minutes of critical care time in the direct management of this patient. This is a life/limb threatening event. This includes time spent evaluating patient, direct bedside care, chart review, placing orders, interpretation of diagnostic studies, discussion with consultants, patient, and family members, as well as other required patient management activities. This time is exclusive of all separately billable procedures, and teaching time and separate from and in addition to any other critical care service time. Consults & Procedures Consultants: Neurology Gastroenterology Procedures: Not applicable Data Medications: Current Inpatient Medications Medications (Trade) Dose Ordered Sig/Tommy Route Start Time Stop Time Status Last Admin Dose Admin Ioversol (Optiray 320) 125 ml UD PRN IV 11/20/17 09:45 11/24/17 09:44 Carbamazepine (Tegretol Tab) 400 mg BID PO 11/20/17 21:00 12/20/17 20:59 Future Hold Heparin Sodium (Porcine) (Heparin Sq 5000 Unit/0.5ml) 5,000 unit Q12 SQ 11/20/17 21:00 12/20/17 20:59 11/20/17 20:56 5,000 UNIT Pantoprazole Sodium 40 mg/ Syringe 10 ml @ 5 mls/min DAILY@1100 IV 11/21/17 11:00 12/21/17 10:59 Miscellaneous Information (Icu Protocol For Hyperglycemia) 1 ea PRN PRN N/A 11/20/17 11:30 11/22/17 11:29 Citalopram Hydrobromide (celeXA TAB) 20 mg DAILY PO 11/21/17 09:00 12/21/17 08:59 Fentanyl Citrate (Fentanyl Inj) 50 mcg Q2H PRN IV 11/20/17 14:15 12/04/17 14:14 Piperacillin Sod/ Tazobactam Sod (Consult) 1 ea UD PRN N/A 11/20/17 14:45 12/20/17 14:44 Piperacillin Sod/ Tazobactam Sod 4.5 gm/Dextrose 120 ml @ 30 mls/hr Q8H IV 11/20/17 20:00 11/27/17 19:59 11/21/17 04:08 30 MLS/HR Gadobutrol (Gadavist) 11 mmol UD PRN IV 11/20/17 18:00 11/24/17 17:59 Carbamazepine (Tegretol Chew Tab) 400 mg BID PO 11/20/17 21:00 12/20/17 20:59 11/20/17 22:35 400 MG Lactated Ringer's 1,000 ml @ 200 mls/hr Q5H IV 11/21/17 00:00 12/21/17 00:00 11/21/17 06:25 200 MLS/HR Vancomycin HCl 2500 mg/Sodium Chloride 550 ml @ 200 mls/hr NOW STAT IV 11/21/17 06:06 11/21/17 08:50 Acetylcysteine 27594 mg/Dextrose 282.65 ml @ 280 mls/ hr NOW STAT IV 11/21/17 06:04 11/21/17 07:04 11/21/17 06:24 280 MLS/HR Acetylcysteine 5510 mg/Dextrose 527.55 ml @ 125 mls/ hr TODAY@0700 IV 11/21/17 07:00 11/21/17 11:14 Acetylcysteine 87096 mg/Dextrose 1,055.1 ml @ 62.5 mls/ hr TODAY@1100 IV 11/21/17 11:00 11/22/17 03:53 Vancomycin HCl (Consult) 1 ea UD PRN N/A 11/21/17 06:15 12/21/17 06:14 Ioversol (Optiray 320) 100 ml UD PRN IV 11/21/17 06:45 11/25/17 06:44 UNV Vital Signs: Date Time Temp Pulse Resp B/P (MAP) Pulse Ox O2 Delivery O2 Flow Rate FiO2 11/21/17 05:51 30 11/21/17 05:15 40 11/21/17 05:01 94 16 128/89 (106) 100 11/21/17 04:01 92 15 127/82 (97) 100 11/21/17 04:00 40 11/21/17 04:00 Mechanical Ventilator 40 11/21/17 03:01 91 12 128/79 (97) 100 11/21/17 02:14 40 11/21/17 02:01 90 14 125/78 (100) 100 11/21/17 01:27 89 13 117/75 (92) 100 11/21/17 00:01 95 16 124/68 (98) 99 11/21/17 00:00 40 11/21/17 00:00 37.2 11/21/17 00:00 Mechanical Ventilator 40 11/20/17 23:35 40 11/20/17 23:01 98 15 129/71 (90) 99 Mechanical Ventilator 40 98 11/20/17 22:01 97 14 125/74 (91) 99 Mechanical Ventilator 40 97 11/20/17 22:01 97 14 125/74 (81) 99 11/20/17 21:01 93 14 114/77 (89) 100 Mechanical Ventilator 40 93 11/20/17 20:01 37.3 97 16 116/72 (87) 99 Mechanical Ventilator 40 11/20/17 20:01 97 16 116/72 (91) 99 18 20:00 40 18 20:00 Mechanical Ventilator 40 11/20/17 18:31 40 11/20/17 18:00 37.7 97 14 117/73 (88) 99 Mechanical Ventilator 38 11/20/17 16:00 38 11/20/17 16:00 100 Mechanical Ventilator 38 11/20/17 16:00 37.7 100 19 115/70 (85) 100 Mechanical Ventilator 38 11/20/17 15:20 37.0 102 20 118/72 99 Mechanical Ventilator 40 11/20/17 14:24 40 11/20/17 12:20 101 20 128/79 99 11/20/17 12:10 101 11/20/17 12:08 100 18 121/75 100 Mechanical Ventilator 11/20/17 11:47 100 18 125/70 100 Mechanical Ventilator 11/20/17 11:25 97 18 118/78 99 Mechanical Ventilator 11/20/17 11:01 97 21 103/67 97 11/20/17 10:56 100 20 108/68 97 11/20/17 10:51 100 21 104/66 96 11/20/17 10:46 101 21 102/68 97 11/20/17 10:41 102 22 106/75 98 11/20/17 10:36 103 21 98/70 99 11/20/17 10:31 100 23 97/67 99 11/20/17 10:26 100 23 103/66 99 11/20/17 10:21 101 22 101/67 98 11/20/17 10:16 101 25 100/65 100 11/20/17 10:12 102/69 11/20/17 10:11 102 23 100 11/20/17 10:06 105 19 99 11/20/17 10:01 107 20 121/71 11/20/17 09:36 147/93 11/20/17 09:35 124 20 100 11/20/17 09:32 100 11/20/17 09:31 177/96 11/20/17 09:30 125 17 100 11/20/17 09:29 182/101 11/20/17 09:25 126 16 100 11/20/17 09:20 116 18 99 11/20/17 09:17 232/126 11/20/17 09:15 137 32 98 11/20/17 09:00 145 27 11/20/17 08:50 127 39 11/20/17 08:47 108/90 11/20/17 08:45 122 35 11/20/17 08:40 114 31 97 11/20/17 08:35 116 30 97 11/20/17 08:32 109/69 11/20/17 08:30 124 34 98 11/20/17 08:25 115 21 11/20/17 08:22 119 18 125/74 95 Nasal Cannula 4.0 11/20/17 08:22 116 11/20/17 08:19 125/74 Laboratory Results: Last 24 Hours Test 11/20/17 08:30 11/20/17 08:47 11/20/17 08:52 11/20/17 09:35 White Blood Count 28.29 K/uL Red Blood Count 5.23 M/uL Hemoglobin 17.2 g/dL Hematocrit 48.7 % Mean Corpuscular Volume 93.1 fL Mean Corpuscular Hemoglobin 32.9 pg Mean Corpuscular Hemoglobin Concent 35.3 g/dl Platelet Count 160 K/uL Mean Platelet Volume 9.1 fL Neutrophils (%) (Auto) 85.4 % Lymphocytes (%) (Auto) 3.2 % Monocytes (%) (Auto) 10.4 % Eosinophils (%) (Auto) 0.1 % Basophils (%) (Auto) 0.1 % Neutrophils # (Auto) 24.17 K/uL Lymphocytes # (Auto) 0.90 K/uL Monocytes # (Auto) 2.94 K/uL Eosinophils # (Auto) 0.03 K/uL Basophils # (Auto) 0.02 K/uL RDW Standard Deviation 44.6 fL RDW Coefficient of Variation 13.1 % Immature Granulocyte % (Auto) 0.8 % Immature Granulocyte # (Auto) 0.23 K/uL Nucleated RBC Absolute Count (auto) 0.06 K/uL Nucleated Red Blood Cells % 0.2 % Toxic Granulation 1+ Prothrombin Time 15.8 SECONDS Prothromb Time International Ratio 1.5 Activated Partial Thromboplast Time 36.8 SECONDS Partial Thromboplastin Ratio 1.4 Sodium Level 137 mmol/L Potassium Level 3.1 mmol/L Chloride Level 101 mmol/L Carbon Dioxide Level 25 mmol/L Anion Gap 11.0 mmol/L Blood Urea Nitrogen 24 mg/dl Creatinine 1.92 mg/dl Est Creatinine Clear Calc Drug Dose 49.6 ml/min Estimated GFR () 42.3 Estimated GFR (Non- 36.5 BUN/Creatinine Ratio 12.6 Random Glucose 87 mg/dl Calcium Level 9.2 mg/dl Total Bilirubin 0.9 mg/dl Direct Bilirubin 0.3 mg/dl Aspartate Amino Transf (AST/SGOT) 210 U/L Alanine Aminotransferase (ALT/SGPT) 164 U/L Alkaline Phosphatase 126 U/L Total Creatine Kinase 2818 U/L Troponin I 6.950 ng/ml Total Protein 7.8 gm/dl Albumin 4.2 gm/dl Hepatitis C Antibody Screen NEG Venous Blood pH 7.26 Venous Blood Partial Pressure CO2 48 mmHg Venous Blood Partial Pressure O2 24 mmHg Venous Blood HCO3 21 mmol/L Venous Blood Oxygen Saturation < 60.0 % Venous Blood Base Excess -5.9 mEq/L Bedside Lactic Acid Venous 7.23 mmol/L Urine Color DK YELLOW Urine Appearance TURBID Urine pH 5.5 Urine Specific [place] 1.020 Urine Protein 2+ Urine Glucose (UA) NEG Urine Ketones TRACE Urine Occult Blood 3+ Urine Nitrite NEG Urine Bilirubin NEG Urine Urobilinogen NEG Urine Leukocyte Esterase MODERATE Urine WBC (Auto) 1-5 /hpf Urine RBC (Auto) >30 /hpf Urine Hyaline Casts (Auto) 1-5 /lpf Urine Epithelial Cells (Auto) >30 /lpf Urine Bacteria (Auto) 2+ Urine Renal Epithelial Cells /lpf Urine Pathogenic Casts 0-3 GRANULAR CASTS /lpf Test 11/20/17 10:10 11/20/17 11:40 11/20/17 16:35 11/20/17 19:53 Bedside Hemoglobin 13.3 g/dl Bedside Hematocrit 39 % Bedside Blood Gas pH (LAB) 7.24 Bedside Blood Gas pCO2 (LAB) 43 mmHg Bedside Blood Gas pO2 (LAB) 229 mmHg Bedside Blood Gas HCO3 (LAB) 18 meq/L Bedside Blood Gas Total CO2 20 mEq/l Bedside Blood Gas Base Excess (LAB) -9.0 meq/L Bedside Blood Gas O2 Saturation 100.0 % Bedside Sodium 137 mEq/L Bedside Potassium 3.0 mEq/L Influenza Type A (RT-PCR) Neg for Influ A Influenza Type A Antigen Neg for Influ A Influenza Type B Antigen Neg for Influ B Influenza Type B (RT-PCR) Neg for Influ B Venous Blood pH 7.25 Venous Blood Partial Pressure CO2 41 mmHg Venous Blood Partial Pressure O2 38 mmHg Venous Blood HCO3 18 mmol/L Venous Blood Oxygen Saturation 66.4 % Venous Blood Base Excess -9.3 mEq/L Sodium Level 137 mmol/L Potassium Level 4.2 mmol/L Chloride Level 107 mmol/L Carbon Dioxide Level 17 mmol/L Anion Gap 13.0 mmol/L Blood Urea Nitrogen 25 mg/dl Creatinine 1.71 mg/dl Est Creatinine Clear Calc Drug Dose 56.5 ml/min Estimated GFR () 48.7 Estimated GFR (Non- 42.0 BUN/Creatinine Ratio 14.7 Random Glucose 63 mg/dl Calcium Level 7.4 mg/dl Carbamazepine (Tegretol) Level 7.8 mcg/ml Bedside Glucose 57 mg/dl Test 11/20/17 20:12 11/20/17 20:21 11/20/17 20:45 11/20/17 20:52 Lactic Acid Level 4.9 mmol/L Total Creatine Kinase 99001 U/L Troponin I 7.270 ng/ml Hepatitis B Surface Antibody NEG Hepatitis C Antibody NEG Bedside Glucose 69 mg/dl 92 mg/dl Gastric Fluid pH 1 Gastric Fluid Occult Blood POS Test 11/20/17 22:42 11/21/17 00:39 11/21/17 03:20 11/21/17 05:28 Hemoglobin 14.3 g/dL 14.2 g/dL Hematocrit 41.0 % 41.1 % Bedside Glucose 121 mg/dl White Blood Count 29.93 K/uL Red Blood Count 4.35 M/uL Mean Corpuscular Volume 94.5 fL Mean Corpuscular Hemoglobin 32.6 pg Mean Corpuscular Hemoglobin Concent 34.5 g/dl Platelet Count 60 K/uL Mean Platelet Volume 9.6 fL Neutrophils (%) (Auto) 90.8 % Lymphocytes (%) (Auto) 4.9 % Monocytes (%) (Auto) 3.5 % Eosinophils (%) (Auto) 0.0 % Basophils (%) (Auto) 0.1 % Neutrophils # (Auto) 27.19 K/uL Lymphocytes # (Auto) 1.46 K/uL Monocytes # (Auto) 1.05 K/uL Eosinophils # (Auto) 0.00 K/uL Basophils # (Auto) 0.03 K/uL RDW Standard Deviation 47.6 fL RDW Coefficient of Variation 13.8 % Immature Granulocyte % (Auto) 0.7 % Immature Granulocyte # (Auto) 0.20 K/uL Nucleated RBC Absolute Count (auto) 0.06 K/uL Nucleated Red Blood Cells % 0.2 % Toxic Vacuolation 1+ Platelet Estimate DECREASED Prothrombin Time 41.6 SECONDS Prothromb Time International Ratio 4.1 Activated Partial Thromboplast Time 55.0 SECONDS Partial Thromboplastin Ratio 2.1 Sodium Level 139 mmol/L Potassium Level 4.1 mmol/L Chloride Level 109 mmol/L Carbon Dioxide Level 20 mmol/L Anion Gap 10.0 mmol/L Blood Urea Nitrogen 27 mg/dl Creatinine 1.45 mg/dl Est Creatinine Clear Calc Drug Dose 66.7 ml/min Estimated GFR () 59.4 Estimated GFR (Non- 51.2 BUN/Creatinine Ratio 18.7 Random Glucose 106 mg/dl Calcium Level 7.0 mg/dl Phosphorus Level 3.2 mg/dl Magnesium Level 1.8 mg/dl Total Bilirubin 2.7 mg/dl Aspartate Amino Transf (AST/SGOT) 3000 U/L Alanine Aminotransferase (ALT/SGPT) 3222 U/L Alkaline Phosphatase 115 U/L Total Creatine Kinase 9114 U/L Troponin I 5.910 ng/ml Total Protein 5.3 gm/dl Albumin 2.9 gm/dl Globulin 2.4 gm/dl Albumin/Globulin Ratio 1.2 Thyroid Stimulating Hormone (TSH) 1.380 uIu/ml Ammonia 22.0 umol/L Lipase 83 U/L Acetaminophen Level ug/ml Ethyl Alcohol mg/dL < 3.0 mg/dl Test 11/21/17 05:53 11/21/17 05:54 11/21/17 05:56 11/21/17 06:21 Lactic Acid Level 3.7 mmol/L Total Bilirubin 3.1 mg/dl Direct Bilirubin 2.5 mg/dl Bedside Glucose 91 mg/dl Test 11/21/17 06:23 Problem Qualifiers (1) Respiratory failure: Chronicity: unspecified Respiratory failure complication: unspecified whether with hypoxia or hypercapnia Qualified Codes: J96.90 - Respiratory failure, unspecified, unspecified whether with hypoxia or hypercapnia (2) Altered mental status: Altered mental status type: unspecified Qualified Codes: R41.82 - Altered mental status, unspecified
[2017-11-21] MEDS ORDERED: THIAMINE HCL INJ 200 MG in SODIUM CHLORIDE 0.9% 50ML 50 ML IV ONE (08:00)
[2017-11-21] MEDS: HEPARIN SOD 5000 UNIT/0.5 ML CARP SQ SCH (08:31)
[2017-11-21] MEDS: CARBAMAZEPINE 100 MG CHEW TAB PO SCH (08:35)
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
[2017-11-21] MEDS ORDERED: CITALOPRAM 20 MG TAB PO SCH (09:00)
[2017-11-21] MEDS ORDERED: CITALOPRAM 40 MG TAB PO SCH (09:00)
--- NOTE | 2017-11-21 09:43 | GASTROINTESTINAL CONSULTATION ---
DATE OF CONSULTATION: 11/21/2017 DATE OF CONSULTATION: 11/21/2017 REFERRED BY: Dr. Gaytan. HISTORY OF PRESENT ILLNESS: I was asked by Dr. Gaytan to consult on this gentleman for evaluation of elevated liver enzymes following a seizure at home. The patient is a 62-year-old who has a history of seizure disorder who was found unresponsive by his family. It was unclear how long he had been unresponsive but EMS had noted that he was incontinent of urine and had bit his tongue. He has no previous history of liver disease. Upon presentation, he was found to have transaminases with an AST of 210, and ALT of 164, alkaline phosphatase was 126. He was given cefepime in the ER for infection, but was eventually switched to Zosyn and he was found today to have transaminases in the 3000s. His initial CK was 2800 and then soon after was 10,000. OUTPATIENT MEDICATIONS: Include Tegretol. There is no history of chronic hepatitis and no known excessive acetaminophen use. PAST MEDICAL HISTORY: I reviewed his medical records and past medical history. Significant for seizure disorder. ALLERGIES: Denies any drug allergies. HOME MEDICATIONS: Include Tegretol and Celexa. SOCIAL HISTORY: Not significant for gastrointestinal or hepatic disease. REVIEW OF SYSTEMS: Difficult to obtain at this point from patient; however, has already been mentioned above. There has been no reported previous history of this fevers, jaundice, recent falls. There has been no recent change in medications. There has been no reported bleeding at home, pruritus, icterus, change in mentation. There has been no noted depression. PHYSICAL EXAMINATION: VITAL SIGNS: Recently shows a temperature this morning of 37.1, pulse is 94, blood pressure 139/85. SKIN: Slightly icteric. The patient is intubated, resting. NECK: Has no adenopathy. CHEST: Bilateral breath sounds. HEART: Regular. No murmurs. ABDOMEN: Soft, nontender. No obvious masses or ascites. EXTREMITIES: Warm with fair distal pulses. NEUROLOGIC: He is intubated and sedated. Ultrasound did not reveal any sinister hepatic pathology and CAT scan of the abdomen and pelvis showed no evidence of ductal dilatation, portal venous thrombus or other sinister pathology. There was some mild nonspecific pericholecystic edema. Labs showed a white blood cell count of 29,000, hemoglobin of 14.2, platelet count that has dropped on admission from being normal to 60. Also of concern is that his blood sugars last evening late dropped to 63 and 57. Transaminases, AST and ALT are 3000 and 3200 respectively. Bilirubin is elevated at 3.1 with a direct of 2.5. CK is down to 8600. Ammonia is normal at 22. IMPRESSION: A 62-year-old gentleman with apparent seizure at home and now transaminitis in the thousands. Most likely this is from an ischemic event. Certainly drug hepatitis needs to be considered. Keppra can be a culprit as well as antibiotics and Tegretol. However, the setting of this appears to be related to the initial presentation and given his high CK is most likely seizure at home. I am sure there was some prolonged degree of hypotension even though this was not the case once he was admitted. Certainly the transaminases are concerning; however, the most concerning thing is his dropping platelets and the fact that his glucose has also had bouts of dipping below 100 even down to 59. This typically is seen in severe hepatic dysfunction. It may be chirinos given this setting to have the patient sent to a center that has a hepatology service if he continues to show further decline in hepatic function. I would be cautious and avoid hepatotoxic medications and certainly I think it is chirinos that you started him on Mucomyst and check acetaminophen level, although this does not seem to be the right clinical setting of this. I have discussed this with the ICU staff. I would like to thank you for this consult. DARCI
--- NOTE | 2017-11-21 09:57 | Discharge Instructions ---
Discharge Instructions Date of Service Nov 21, 2017. Admission Reason for Admission: Seizure Disorder Discharge Discharge Diagnosis / Problem: liver failure (acute) Discharge Goals Goal(s): Increase independence Activity Recommendations Activity Limitations: as noted below . Current Hospital Diet Patient's current hospital diet: Discharge Diet Recommended Diet: N/A (nothing by mouth) Pending Studies Studies pending at discharge: yes List of pending studies: Acetaminophen level Laboratory Results Lipid Panel Test 11/21/17 07:30 Range/Units Triglycerides Level 41 0-150 mg/dl Medical Emergencies . Who to Call and When: Medical Emergencies: If at any time you feel your situation is an emergency, please call 911 immediately. . Non-Emergent Contact Non-Emergency issues call your: Hospital Doctor . . "Provider Documentation" section prepared by Joel Gaytan. . VTE Core Measure Inpt VTE Proph given/why not?: Unfractionated heparin SQ
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
[2017-11-21] MEDS ORDERED: PANTOprazole INJ 40 MG in SYRINGE 0 ML IV SCH (11:00)
--- NOTE | 2017-11-21 11:11 | ECHOCARDIOGRAM REPORT ---
*NOTICE TO RECEIVING [facility] [employer] This information is strictly Confidential and protected under [place] law. [place] law prohibits you from making any further disclosure of this information unless further disclosure is expressly permitted by the written consent of the person to whom it pertains or is authorized by law. A general authorization for the release of medical or other information is not sufficient for this purpose. Hospital accepts no responsibility if the information is made available to any other person, INCLUDING THE PATIENT. Interpretation Summary * Name: MIGDALIA HOLDER Study Date: 11/21/2017 09:26 AM BP: 128/89 mmHg * Patient Location: .MSICU\S\E107\S\1 HR: 94 * : 1955 (M/d/yyy) Gender: Male Height: 71 in * Age: 62 yrs Ethnicity: [place] Weight: 242 lb * Ordering Physician: Kacey Sprague * Referring Physician: UNKNOWN * Performed By: Tori Hurst RDCS * * Reason For Study: Alteration of consciousness * BSA: 2.3 m2 * -- Conclusions -- * Technically limited study despite use of definity ultrasound contrast. * 1. Normal LV size. Normal LV wall thickness. * 2. Normal LV systolic function. LVEF 50-55%. No regional wall motion abnormalities. * 3. RV not well visualized, appears grossly normal in size and function. * 4. No significant valvular pathology. * 5. Dilated IVC, estimated RA pressure 15 mmHg. * 6. Negative saline contrast study for interatrial shunt. * 7. No prior studies for comparison. Procedure Details * A complete two-dimensional transthoracic echocardiogram was performed (2D, M-mode, Doppler and color flow Doppler). * A saline contrast injection was performed to assess for cardiac shunting. * The injection was performed through an intravenous line in the left arm. * The attending nurse who injected the saline contrast was Jenniffer Kingston RN. * A total of 10 cc of agitated saline was given. * A contrast injection of Definity was performed to improve assessment of LV function. * Contrast was injected into an intravenous site in the left arm. * One vial of Definity ultrasound contrast was diluted in normal saline to a total volume of 10 ml. A total of '2' ml of solution was administered during imaging. * Lot # [id number] of Definity utilized for procedure. * Expiration date Jan 04. * The attending nurse who injected the contrast agent was Jenniffer Kingston RN. Left Ventricle * The left ventricle is grossly normal size. * There is normal left ventricular wall thickness. * Ejection Fraction = 50-55%. Right Ventricle * The right ventricle is not well visualized. * The right ventricle is grossly normal size. * The right ventricular systolic function is normal as assessed by tricuspid annular plane systolic excursion (TAPSE) (normal >1.5 cm). Atria * The left atrial size is normal. * Right atrial size is normal. * Injection of contrast documented no interatrial shunt. Mitral Valve * The mitral valve is grossly normal. * There is no mitral valve stenosis. * Significant mitral regurgitation is absent. Tricuspid Valve * Significant tricuspid regurgitation is absent. Aortic Valve * The aortic valve opens well. * The aortic valve is trileaflet. * No hemodynamically significant valvular aortic stenosis. * There is no significant aortic regurgitation. Pulmonic Valve * The pulmonary valve is inadequately visualized, but the Doppler data is adequate for interpretation. * Pulmonic stenosis is absent. * There is no significant pulmonary regurgitation. Great Vessels * The aortic root and proximal ascending aorta are normal sized. Pericardium/Pleural * There is no pericardial effusion. Great Vessels * Dilated inferior vena cava with reduced collapsability with sniff indicates an elevated right atrial pressure of 15 mmHg MMode 2D Measurements and Calculations IVSd 1.1 cm LVIDd 3.7 cm LVIDs 2.8 cm LVPWd 0.77 cm IVS/LVPW 1.4 FS 24.1 % EDV(Teich) 56.7 ml ESV(Teich) 29.0 ml EF(Teich) 48.8 % EDV(cubed) 49.1 ml ESV(cubed) 21.5 ml EF(cubed) 56.2 % LV mass(C)d 96.4 grams LV mass(C)dI 42.2 grams/m\S\2 SV(Teich) 27.6 ml SI(Teich) 12.1 ml/m\S\2 SV(cubed) 27.6 ml SI(cubed) 12.1 ml/m\S\2 Ao root diam 2.7 cm Ao root area 5.7 cm\S\2 ACS 2.5 cm LA dimension 2.5 cm asc Aorta Diam 2.9 cm LA/Ao 0.93 LVAd ap4 32.7 cm\S\2 LVLd ap4 7.8 cm EDV(MOD-sp4) 112.9 ml EDV(sp4-el) 116.0 ml LVAs ap4 21.0 cm\S\2 LVLs ap4 7.3 cm ESV(MOD-sp4) 52.1 ml ESV(sp4-el) 51.6 ml EF(MOD-sp4) 53.8 % EF(sp4-el) 55.5 % LVAd ap2 18.3 cm\S\2 LVLd ap2 6.6 cm EDV(MOD-sp2) 41.4 ml EDV(sp2-el) 42.7 ml LVAs ap2 11.1 cm\S\2 LVLs ap2 5.5 cm ESV(MOD-sp2) 18.9 ml ESV(sp2-el) 19.0 ml EF(MOD-sp2) 54.3 % EF(sp2-el) 55.5 % LVLd %diff -18.09 % EDV(MOD-bp) 74.1 ml LVLs %diff -32.39 % ESV(MOD-bp) 36.2 ml EF(MOD-bp) 51.2 % SV(MOD-sp4) 60.8 ml SI(MOD-sp4) 26.6 ml/m\S\2 SV(MOD-sp2) 22.5 ml SI(MOD-sp2) 9.8 ml/m\S\2 SV(MOD-bp) 37.9 ml SI(MOD-bp) 16.6 ml/m\S\2 SV(sp4-el) 64.4 ml SI(sp4-el) 28.2 ml/m\S\2 SV(sp2-el) 23.7 ml SI(sp2-el) 10.4 ml/m\S\2 Doppler Measurements and Calculations MV E max juan 80.5 cm/sec MV A max juan 102.3 cm/sec MV E/A 0.79 MV dec time 0.23 sec Ao V2 max 109.6 cm/sec Ao max PG 4.8 mmHg Ao max PG (full) 1.8 mmHg LV V1 max PG 3.0 mmHg LV V1 max 86.3 cm/sec PA V2 max 92.3 cm/sec PA max PG 3.4 mmHg PA acc slope 814.0 cm/sec\S\2 PA acc time 0.08 sec TR max juan 107.2 cm/sec PA pr(Accel) 44.1 mmHg
[2017-11-21] MEDS ORDERED: NURSING VERBAL MED ORDER ONE (11:15)
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
[2017-11-21] MEDS ORDERED: METOPROLOL TARTRATE 1 MG/ML VIAL ONE (12:11)
[2017-11-21] MEDS ORDERED: METOPROLOL TARTRATE 1 MG/ML VIAL IV ONE (12:15)
[2017-11-21] MEDS ORDERED: HydrALAZINE HCL 20 MG/ML VIAL IV PRN (13:45)
[2017-11-21] MEDS ORDERED: VANCOMYCIN IV 1,500 MG in SODIUM CHLORIDE 0.9% 500ML 500 ML IV SCH (20:00)
[2017-11-22] MEDS ORDERED: THIAMINE HCL INJ 200 MG in SODIUM CHLORIDE 0.9% 50ML 50 ML IV SCH (09:00)
[2017-11-22] MEDS ORDERED: VANCOMYCIN TROUGH ONE (19:30)
[2017-11-23 02:39] LABS: HEPATITIS A IGM TC 51813E NON-REACTIVE (NON-REACTIVE)
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
== END 2017-11-21 15:45 | disposition short-term general hospital (02) | DRG 441 ==
LOC: EDBD 08:19 → C.EDB 08:19 → C.MSICU 11:37 → ENRESERV 11:44
PROVIDERS: ADMIT Internal Medicine; ATTEND Internal Medicine
DX: K72.90 Hepatic failure, unspecified without coma (principal); J96.90 Respiratory failure, unspecified, unspecified whether with hypoxia or hypercapnia; N17.9 Acute kidney failure, unspecified; I24.8 Other forms of acute ischemic heart disease; G40.909 Epilepsy, unspecified, not intractable, without status epilepticus; Z87.820 Personal history of traumatic brain injury; D72.829 Elevated white blood cell count, unspecified; R94.5 Abnormal results of liver function studies; Z86.73 Personal history of transient ischemic attack (TIA), and cerebral infarction without residual deficits